=== PATIENT | male | born 1960 | race Two or more races ===

== ENCOUNTER 2022-02-26 10:11 | Day surgery (SDC) | payer MEDICAID ==
[2022-02-24 09:35] LABS: Basophils # (auto) 0.1 10 ^3/uL (0-0.2); Basophils % (auto) 0.7 % (0.0-2.0); Eosinophils # (auto) 0.2 10 ^3/uL (0-0.8); Eosinophils % (auto) 2.1 % (0.0-7.0); Hematocrit 44.5 % (41.0-53.0); Hemoglobin 15.4 g/dL (13.5-17.5); Lymphocytes % (auto) 22.3 % (10.0-50.0); Mean Corpuscular Hemoglobin 30.2 pg (28.0-32.0); Mean Corpuscular Hgb Conc. 34.7 g/dL (32.0-36.0); Mean Corpuscular Volume 86.9 fL (80.0-100.0); Monocytes # (auto) 0.8 10 ^3/uL (0-1.3); Monocytes % (auto) 9.2 % (0.0-12.0); Neutrophils % (auto) 65.7 % (37.0-80.0); Nucleated Red Blood Cells % 0.1 %; Red Blood Cells 5.12 10^6/uL (4.5-5.90); Red Cell Distribution Width 12.7 % (11.8-14.3); White Blood Cell 9.1 10^3/uL (4.4-10.8)
[2022-02-24 09:40] LABS: INR 1.05 (0.9-1.15); Partial Thromboplastin Time 30.8 sec (24.6-33.4)
[2022-02-24 10:02] LABS: Calcium 9.5 mg/dL (8.5-10.1); Potassium 4.2 mmol/L (3.5-5.1)
[2022-02-24 10:08] LABS: Albumin 3.9 g/dL (3.4-5.0); BUN/Creatinine Ratio 17.4; Bilirubin, Total 0.6 mg/dL (0.2-1.0); Total Protein 7.5 g/dL (6.4-8.2)
[~2022-02-26] VITALS: Ht 167.6 cm; Wt 842.8 kg
[~2022-02-26 10:11] MED LIST: ATOR40TA52 PO; LORA-483 PO; METF-370 PO
[2022-02-26] MEDS ORDERED: diphenhdrAMINE HCL 50 MG/1 ML VL ONE (10:39)
[2022-02-26] MEDS: MIDAZOLAM HCL 5 MG/ML-1ML VIAL ONE ×3 (10:45→11:03)
[2022-02-26] MEDS: fentaNYL CITRATE 100 MCG/2 ML VL ONE ×3 (10:45→11:03)
[2022-02-26 11:53] VITALS: BP 113/76
== END 2022-02-26 11:53 | disposition home or self-care (01) ==
LOC: GI 10:11
PROVIDERS: ATTEND Internal Medicine Gastroenterology
DX: Z12.11 Encounter for screening for malignant neoplasm of colon (principal); D12.0 Benign neoplasm of cecum; D12.2 Benign neoplasm of ascending colon; D12.3 Benign neoplasm of transverse colon; D12.7 Benign neoplasm of rectosigmoid junction; D12.5 Benign neoplasm of sigmoid colon; K64.8 Other hemorrhoids; I10 Essential (primary) hypertension; E11.9 Type 2 diabetes mellitus without complications; E78.5 Hyperlipidemia, unspecified; Z90.49 Acquired absence of other specified parts of digestive tract; Z86.010 Personal history of colon polyps; Z20.822 Contact with and (suspected) exposure to COVID-19
CPT/HCPCS: 36415; 45380; 45385; 80053; 82962; 85025; 85610; 85730; 88305; 88342; J1200; J2250; J3010; J7030; U0003; 99152; 99153

== ENCOUNTER → 2022-04-27 | Outpatient (CLI) | payer MEDICAID ==
[2022-04-27 12:49] LABS: Urine Bacteria NONE SEEN /hpf (None Seen); Urine Blood Negative /uL (Negative); Urine Specific Gravity 1.009 (1.001-1.035); Urine WBC 1 /hpf (0 - 3)
== END | disposition home or self-care (01) ==
LOC: LAB 12:05
PROVIDERS: ATTEND Urology
DX: R97.20 Elevated prostate specific antigen [PSA] (principal); E11.9 Type 2 diabetes mellitus without complications
CPT/HCPCS: 81001; 84153; 87086

== ENCOUNTER → 2022-04-28 | Outpatient (CLI) | payer MEDICAID ==
[2022-04-28 08:17] LABS: Urine Bacteria NONE SEEN /hpf (None Seen); Urine Blood Negative /uL (Negative); Urine Specific Gravity 1.013 (1.001-1.035); Urine WBC <1 /hpf (0 - 3)
== END | disposition home or self-care (01) ==
LOC: LAB 06:14
PROVIDERS: ATTEND Urology
DX: N39.0 Urinary tract infection, site not specified (principal)
CPT/HCPCS: 81001; 87086

== ENCOUNTER 2024-07-29 07:27 | Day surgery (SDC) | payer MEDICAID ==
[2024-07-26 10:07] LABS: Basophils # (auto) 0.1 10 ^3/uL (0-0.2); Eosinophils # (auto) 0.2 10 ^3/uL (0-0.8); Eosinophils % (auto) 2.2 % (0.0-7.0); Hematocrit 47.3 % (41.0-53.0); Hemoglobin 16.1 g/dL (13.5-17.5); Lymphocytes # (auto) 1.9 10 ^3/uL (0.4-5.4); Lymphocytes % (auto) 24.3 % (10.0-50.0); Mean Corpuscular Hemoglobin 30.2 pg (28.0-32.0); Mean Corpuscular Hgb Conc. 34.1 g/dL (32.0-36.0); Mean Corpuscular Volume 88.6 fL (80.0-100.0); Monocytes # (auto) 0.6 10 ^3/uL (0-1.3); Monocytes % (auto) 7.7 % (0.0-12.0); Neutrophils # (auto) 5.1 10 ^3/uL (1.6-8.6); Neutrophils % (auto) 64.8 % (37.0-80.0); Platelet Count (auto) 191 10^3/uL (140-450); Red Blood Cells 5.34 10^6/uL (4.5-5.90); Red Cell Distribution Width 12.7 % (11.8-14.3); White Blood Cell 7.9 10^3/uL (4.4-10.8)
[2024-07-26 10:39] LABS: INR 1.03 (0.9-1.15); Partial Thromboplastin Time 29.6 SEC (24.5-34.5); Prothrombin Time 10.9 sec (9.3-11.8)
[2024-07-26 10:49] LABS: Alanine Aminotransferase 27 U/L (7-40); Anion Gap 7 (5-15); Calcium 10.4 mg/dL (8.7-10.4); Carbon Dioxide 28 mmol/L (20-31); Chloride 101 mmol/L (98-107); Potassium 4.4 mmol/L (3.5-5.1)
[2024-07-26 10:50] LABS: BUN/Creatinine Ratio 14.4 (10.0-20.0); Blood Urea Nitrogen 15 mg/dL (9-23)
[2024-07-26 10:51] LABS: Albumin 4.5 g/dL (3.2-4.8); Aspartate Aminotransferase 17 U/L (13-40)
[2024-07-26 10:52] LABS: Bilirubin, Total 0.9 mg/dL (0.2-1.0); Total Protein 7.4 g/dL (5.7-8.2)
[2024-07-26 10:55] LABS: Alkaline Phosphatase 116 U/L (46-116); Glucose 196 mg/dL (74-106); Sodium 136 mmol/L (136-145)
[~2024-07-29] VITALS: Ht 175.3 cm; Wt 83.9 kg
[~2024-07-29 07:27] MED LIST changes: +LISI20TA56 PO; -METF-370 PO; +METF-490 PO
[2024-07-29] MEDS ORDERED: SODIUM CHLORIDE LOCK 10 ML ONE (07:56)
[2024-07-29] MEDS ORDERED: diphenhdrAMINE HCL 50 MG/1 ML VL ONE (07:57)
[2024-07-29 08:38] VITALS: PULSE 68; RESP 12; O2SAT 100
[2024-07-29] MEDS: fentaNYL CITRATE 100 MCG/2 ML VL ONE (08:45)
[2024-07-29] MEDS: MIDAZOLAM HCL 5 MG/ML-1ML VIAL ONE (08:45)
[2024-07-29 09:01] VITALS: PULSE 74; RESP 12; TEMP 97.8; O2SAT 98
[2024-07-29 09:27] VITALS: BP 103/62; PULSE 72; RESP 18; O2SAT 97
--- NOTE | 2024-07-30 12:20 | DVHNC2 ---
Procedure - DATE OF PROCEDURE: JULY 29, 2024 SURGEON: Jose Troncoso MD REFERRING PROVIDER: BELL DAVIS MD PROCEDURE PERFORMED: 1. COLONOSCOPY WITH COLD SNARE POLYPECTOMY WITH MODERATE SEDATION 2. COLONOSCOPY WITH BIOPSY WITH MODERATE SEDATION PRE-PROCEDURE DIAGNOSIS: 1. Colon cancer screening, average risk 2. History of colon polyps POSTPROCEDURE DIAGNOSIS: 1. Three colon polyps throughout the colon removed with biopsy forceps 2. 2+ internal hemorrhoids INDICATIONS FOR PROCEDURE: The patient is a 63-year-old male who presents for outpatient colonoscopy. He has a prior history of colon polyps SEDATION GIVEN: 5 mg IV Versed and 100 mcg IV fentanyl were given. DETAILS OF THE PROCEDURE: Informed consent was obtained after risks, benefits, and alternatives, were discussed at length with the patient. Consent was given for the procedures as well as for the sedation. Patient was placed in the left lateral decubitus position. Digital rectal exam showed no abnormalities. An Olympus variable torsion adult colonoscope was inserted into the rectum and adva nced to the cecum. The cecum was identified by the ileocecal valve in the appendiceal orifice. The scope was then withdrawn. The prep was good with only small amounts of stool. The patient had three colon polyps throughout the colon. The patient had a 3 mm polyp removed with biopsy forceps in the cecum. There was a 4 mm transverse colon polyp removed with biopsy forceps and another 4 mm sigmoid colon polyp removed with biopsy forceps. There were no masses, strictures, or arteriovenous malformations. More than 6 minutes withdrawal time was noted. Retroflexion showed 2+ internal hemorrhoids. The patient tolerated the procedure well. Colonoscopy start time: 850 Colonoscopy cecum time: 851 Colonoscopy in time: 900 IMPRESSION: 1. Three colon polyps measuring between three and 4 mm removed with biopsy forceps 2. 2+ internal hemorrhoids RECOMMENDATIONS: 1. Follow up with biopsies and procedure results of the colonoscopy in GI clinic 2. High-fiber diet 3. Repeat colonoscopy in three years unless otherwise indicated 4. Consider medical management of the hemorrhoids versus surgical referral 5. Follow up with primary care physician I would like to thank Dr. Davis for this referral. JOSE TRONCOSO MD Jul 30, 2024 12:20
== END 2024-07-29 09:50 | disposition home or self-care (01) ==
LOC: GI 07:27
PROVIDERS: ATTEND Specialist
DX: Z12.11 Encounter for screening for malignant neoplasm of colon (principal); D12.0 Benign neoplasm of cecum; D12.2 Benign neoplasm of ascending colon; D12.5 Benign neoplasm of sigmoid colon; I10 Essential (primary) hypertension; E11.9 Type 2 diabetes mellitus without complications; Z79.899 Other long term (current) drug therapy; Z79.84 Long term (current) use of oral hypoglycemic drugs; Z98.890 Other specified postprocedural states; Z90.49 Acquired absence of other specified parts of digestive tract
CPT/HCPCS: 36415; 45380; 45385; 80053; 82962; 85025; 85610; 85730; 88305; J2250; J3010; 99152